=== PATIENT | male | born 1950 | race Caucasian/White ===

== ENCOUNTER → 2017-01-28 | Outpatient (CLI) | payer MEDICARE, BC ==
[~2017-01-28] MED LIST: ACTOS PO; ACTOS30 MG PO; ASPIRIN81 M2 PO; ASPIRIN81 MG PO; ASPIRINEC PO; AUGMENTIN PO; CORDARONE200 M1 PO; CRESTOR PO; DILTIAZEM 24HR240 M2 PO; FLOMAX0.4 M1 PO; HYDROCODON-ACE1 EAC7 PO; LIPITOR PO; LISINOPRIL PO; LOPRESSOR PO; METFORMIN PO; NIASPAN PO; TYLENOL325 M1 PO; XARELTO20 MG PO; ZOLOFT PO; ZOLOFT100 MG PO; [UNRECOGNIZED DRUG - CODE] PO
--- NOTE | ~2017-01-28 | MR113 ---
[facility]. [facility] A Service of [facility] & [facility] RADIOLOGY TEXT RESULTS PATIENT: REMY OQUENDO LOCATION: [facility] : 52 UNIT #: [id number] AGE: [address]: ASHLEY BENAVIDES SEX: M ORDER DR: [id number] [place] [id number] O MR#: [id number] Acc #: [id number] NAME: REMY OQUENDO. : 1950 SEX: M STUDY DATE/TIME: 01/28/2017 11:31 UNIT: [facility] ROOM: STUDY DESCRIPTION: MR Lumbar Wo Contrast Attending Physician: Ashley Benavides M.D. Referring Physician: Ashley Benavides M.D. Primary Care Physician: Alon Shields M.D. MRI CENTER REPORT This report is preliminary unless electronic signature is present. EXAM MRI of the lumbar spine without contrast dated 01/28/2017. COMPARISON None. HISTORY Increasing low back pain with left lower extremity weakness, difficulty walking and frequent falls. Question spinal stenosis. Symptoms have been going on for 6-7 years. FINDINGS Multisequence, multiplanar imaging of the lumbar spine was obtained without contrast. There is mild retrolisthesis of L5 with respect to S1. There is a transitional vertebral body and for purposes of numbering, the last tiny disc remnant is considered as S1-2. Conus terminates at L1-2. Signal of conus and cauda equina are within normal limits. There is prominence of the posterior epidural fat pad causing mass effect on the thecal sac from the level of L1-2 to L4-5 suggestive of mild epidural lipomatosis. Pre- and paravertebral soft tissues do not demonstrate any significant abnormality. L1-2: Mild degenerative disc signal loss and mild bilateral facet changes, worse on the left. Suspicious small left foraminal to extraforaminal protrusion with mild left neural foraminal encroachment. No canal stenosis. L2-3: Concentric disc bulge with tiny central protrusion. Moderate bilateral facet changes are noted without canal stenosis. Mild inferior bilateral neural foraminal encroachment particularly on the left. STS. [facility] A Service of [facility] & [facility] RADIOLOGY TEXT RESULTS PATIENT: REM[id number] 52 UNIT #: [id number] AGE: [address]: ASHLEY BENAVIDES SEX: M ORDER DR: L3-4: Concentric disc bulge with superimposed left foraminal to extraforaminal moderate broad-based protrusion with mild to moderate left and mild inferior right neural foraminal narrowing. Mild bilateral facet changes are noted with mild to moderate canal stenosis. L4-5: Concentric moderate disc bulge with mild to moderate bilateral facet changes, mild to moderate canal stenosis and mild inferior bilateral neural foraminal narrowing. L5-S1: Disc-osteophyte complex, which is asymmetrically prominent in the left foraminal to extraforaminal region suggestive of superimposed broad-based disc protrusion. Mild to moderate bilateral facet changes are noted with mild right and mild to moderate left neural foraminal narrowing. Patient likely has had right hemilaminectomy. Correlate with prior operative note. Borderline size canal with mild bilateral lateral recess encroachment particularly on the left. IMPRESSION 1. Status post right hemilaminectomy at L5-S1. Disc-osteophyte complex is seen at this level, which is asymmetrically prominent in the left foraminal to extraforaminal region. Mild bilateral neural foraminal narrowing are noted, worse on the left. 2. Of the nonoperative levels, findings are relatively worse at L3-4 with the left foraminal to extraforaminal moderate broad-based protrusion causing left neural foraminal narrowing. Dictated by... Kailey Andrews M.D. THIS IS AN ELECTRONICALLY VERIFIED REPORT Kailey Andrews M.D. at 01/31/2017 4:56 PM CPR/psc TD: 01/28/2017 21:42 JOB #: [id number] MRI CENTER REPORT Page 1 of 1
== END | disposition home or self-care (01) ==
LOC: SMRI 08:10
DX: M48.07 Spinal stenosis, lumbosacral region (principal); M25.78 Osteophyte, vertebrae; M51.26 Other intervertebral disc displacement, lumbar region; Z98.890 Other specified postprocedural states
CPT/HCPCS: 72148

== ENCOUNTER → 2017-03-13 | Outpatient (CLI) | payer MEDICARE, BC ==
--- NOTE | ~2017-03-13 | MR17 ---
[facility] A Service of [facility] RADIOLOGY TEXT RESULTS PATIENT: REMY OQUENDO LOCATION: [facility] : 52 UNIT #: [id number] AGE: [address]: ASHLEY BENAVIDES SEX: M ORDER DR: [id number] [place] [id number] O MR#: [id number] Acc #: [id number] NAME: REMY OQUENDO : 1950 SEX: M STUDY DATE/TIME: 03/13/2017 10:59 UNIT: [facility] ROOM: STUDY DESCRIPTION: MR Brain WWo Contrast Attending Physician: Ashley Benavides M.D. Referring Physician: Ashley Benavides M.D. Ordering Physician: Cheryl Not Listed Primary Care Physician: Alon Shields M.D. MRI CENTER REPORT This report is preliminary unless electronic signature is present. EXAM MRI of the brain with and without HISTORY Essential tremor, memory loss. No known injury. Patient complains of bilateral lower extremity weakness, ataxia, and frequent falls for 6-7 years with worsening memory loss in the past 3-4 months. No cancer history. Patient has diabetes. COMMENTS MRI of the brain was performed prior to and following intravenous administration of MultiHance. Dose not recorded on the PACS system. Please refer to the [facility] system. Comparison study is from 11/29/2009. There is no evidence for a recent ischemic insult on the diffusion series. No Chiari-I malformation. Mild generalized atrophy. No MRI evidence for intracranial hemorrhage. Small focus of cortical malacia involving the right frontal cortex at the motor cortex superiorly, linear, about a centimeter in length. Small focus of cortical malacia left frontal lobe anteriorly, also linear. Mild nonspecific white matter signal abnormality probably due to small vessel disease. A few small lacunar type insults in the basal ganglia and a more focal lacuna in the right thalamus. There is no extraaxial fluid collection. The major intracranial flow voids are maintained. There is no intracranial mass effect. There is paranasal sinus disease, left frontal sinus. Moderate amount of retained secretions. There is opacification of the bilateral ethmoid air cells, left greater than right mucosal disease, and left greater than right sphenoid sinus and moderate mucosal disease in the left maxillary sinus with an air-fluid level. Findings are consistent with a component of acute sinusitis. The mastoid air cells are clear. The paranasal sinus STS. [facility] A Service of [facility] RADIOLOGY TEXT RESULTS PATIENT: REMY OQUENDO LOCATION: [facility] : 52 UNIT #: [id number] AGE: [address]: ASHLEY BENAVIDES SEX: M ORDER DR: disease is new from previous. Also new from previous is the right thalamic lacuna. Small vessel disease has progressed from prior, and the small areas of cortical malacia are probably new. Following contrast administration, there is no pathologic intracranial enhancement. No intracranial mass lesion or mass effect. IMPRESSION 1. Interval progression of probable sequelae of small vessel disease since 11/29/2009. In particular, there is a new small lacuna in the right thalamus. It is now chronic in appearance. 2. Interval development of 2 small foci of cortical malacia, right posterior frontal lobe and left anterolateral frontal lobe. Please correlate further for possible risk factors for thromboembolic disease. Otherwise, the etiology of these small malacic areas is nonspecific. 3. There is mild generalized atrophy. There is no intracranial mass effect or extraaxial fluid collection or pathologic intracranial enhancement. 4. There is considerable paranasal sinus disease, and this includes an air-fluid level in the left maxillary sinus consistent with a component of acute sinusitis. See full description of the paranasal sinus disease above. STAT * RESULT Dictated by... Linnette Infante M.D. THIS IS AN ELECTRONICALLY VERIFIED REPORT Linnette Infante M.D. at 03/13/2017 5:03 PM Tri TD: 03/13/2017 16:10 JOB #: [id number] MRI CENTER REPORT Page 1 of 1
[2017-03-13 13:06] LABS: POC - CREATININE 1.04 mg/dL (0.64-1.27); POC - GFR >60.0 mL/min (>60)
== END | disposition home or self-care (01) ==
LOC: SMRI 10:32
PROVIDERS: Internal Medicine Sleep Medicine
DX: G25.0 Essential tremor (principal); R41.3 Other amnesia; R29.898 Other symptoms and signs involving the musculoskeletal system; G31.9 Degenerative disease of nervous system, unspecified; J32.9 Chronic sinusitis, unspecified
CPT/HCPCS: 70553; 82565; A9581